=== PATIENT | male | born 1965 | race Caucasian/White ===

== ENCOUNTER 2021-10-09 16:28 | Emergency (ER) | payer BC ==
[~2021-10-09] VITALS: Ht 175.3 cm; Wt 82.5 kg
[~2021-10-09 16:28] MED LIST: ZOFRAN4 MG PO
== END 2021-10-09 19:04 | disposition home or self-care (01) ==
LOC: ED 16:28
DX: U07.1 COVID-19 (principal)
CPT/HCPCS: 71045; 80053; 81001; 82553; 83880; 84484; 85025; 99283-25; J7030